=== PATIENT | male | born 1960 | race Caucasian/White ===

== ENCOUNTER 2022-10-05 12:45 | Outpatient (CLI) | payer BC, SELFPAY | END 2022-10-05 12:46 | disposition home or self-care (01) | LOC: RAD 12:46 | PROVIDERS: PCP Family Medicine; Visit Provider Internal Medicine | DX: R00.1 Bradycardia, unspecified (principal) | CPT/HCPCS: 93306 ==

== ENCOUNTER 2023-08-21 13:59 | Outpatient (CLI) | payer BC, SELFPAY | END 2023-08-21 14:00 | disposition home or self-care (01) | LOC: LKVREF 14:01 | PROVIDERS: PCP Family Medicine; Visit Provider Family Medicine | DX: Z01.818 Encounter for other preprocedural examination (principal); I10 Essential (primary) hypertension | CPT/HCPCS: 80048 ==

== ENCOUNTER 2023-10-01 14:39 | Outpatient (CLI) | payer BC, SELFPAY | END 2023-10-01 14:40 | disposition home or self-care (01) | LOC: LKVREF 14:41 | PROVIDERS: PCP Family Medicine; Visit Provider Family Medicine | DX: Z01.818 Encounter for other preprocedural examination (principal) | CPT/HCPCS: 80048 ==

== ENCOUNTER 2023-12-20 09:45 | Outpatient (CLI) | payer BC, SELFPAY | END 2023-12-20 09:46 | disposition home or self-care (01) | PROVIDERS: PCP Family Medicine; Visit Provider Internal Medicine | DX: I71.21 Aneurysm of the ascending aorta, without rupture (principal); I35.1 Nonrheumatic aortic (valve) insufficiency; I34.0 Nonrheumatic mitral (valve) insufficiency | CPT/HCPCS: 93306; 93308; 93321; 93325 ==

== ENCOUNTER 2024-08-13 10:14 | Outpatient (CLI) | payer BC, SELFPAY | END 2024-08-13 10:15 | disposition home or self-care (01) | PROVIDERS: PCP Family Medicine; Visit Provider Family Medicine | DX: E78.2 Mixed hyperlipidemia (principal); I10 Essential (primary) hypertension; Z12.5 Encounter for screening for malignant neoplasm of prostate | CPT/HCPCS: 80048; 80061; 83835; G0103 ==

== ENCOUNTER 2025-01-28 15:22 | Outpatient (CLI) | payer BC, SELFPAY | END 2025-01-28 15:23 | disposition home or self-care (01) | LOC: LKVREF 15:24 | PROVIDERS: PCP Family Medicine; Visit Provider Family Medicine | DX: R74.8 Abnormal levels of other serum enzymes (principal) | CPT/HCPCS: 80076 ==